=== PATIENT | male | born 1965 | race Caucasian/White ===

== ENCOUNTER 2024-06-26 19:33 | Inpatient (IN) | payer OTHER ==
[~2024-06-26] VITALS: Ht 172.7 cm; Wt 65.3 kg
[2024-06-26 20:29] LABS: BASOPHILS % 0.3 % (0.0-2.0); EOSINOPHILS % 1.4 % (0.0-5.0); HEMATOCRIT. 46.5 % (42.0-52.0); HEMOGLOBIN. 15.2 g/dL (14.0-18.0); LYMPHOCYTES % 16.5 % (20.0-50.0); MEAN CORPUSCULAR HEMOGLOBIN 29.4 pg (28.0-32.0); MEAN CORPUSCULAR HGB CONC 32.6 g/dL (31.0-37.0); MEAN CORPUSCULAR VOLUME 90.2 fL (80.0-94.0); MEAN PLATELET VOLUME 10.3 fl (7.4-10.4); MONOCYTES % 5.9 % (2.0-8.0); NEUTROPHILS % 75.9 % (40.0-76.0); PLATELET 118 x1000/uL (130-400); RED BLOOD CELL COUNT 5.15 mill/uL (4.7-6.1); RED CELL DISTRIBUTION WIDTH 14.4 % (11.6-14.6); WHITE BLOOD COUNT 7.3 x1000/uL (4.5-11.0)
[2024-06-26 20:39] LABS: CHLORIDE 105 mEq/L (98-107); POTASSIUM 4.2 mEq/L (3.5-5.1); SODIUM 140 mEq/L (136-145)
[2024-06-26 20:40] LABS: CARBON DIOXIDE 27 mEq/L (21-32)
[2024-06-26 20:41] LABS: CALCIUM 9.3 mg/dL (8.7-10.4)
[2024-06-26 20:45] LABS: CREATININE 1.2 mg/dL (0.6-1.3)
[2024-06-26 20:46] LABS: GLUCOSE 115 mg/dL (70-105); UREA NITROGEN BLOOD 20 mg/dL (9-23)
[2024-06-26 20:47] LABS: TROPONIN I HIGH SENSITIVITY 6 ng/L (3.0-53)
[2024-06-26 22:23] LABS: TROPONIN I HIGH SENSITIVITY 15 ng/L (3.0-53)
[2024-06-27] VITALS (7 sets, daily range): BP systolic 99–108; BP diastolic 61–66; PULSE 47–60; RESP 16–19; TEMP 36.2–36.7; O2SAT 96–100
[2024-06-27] MEDS ORDERED: SACU1TAB PO (00:08)
[2024-06-27] MEDS ORDERED: CLOP75TA33 PO (00:08)
[2024-06-27] MEDS ORDERED: ATOR40TA70 PO (00:08)
[2024-06-27] MEDS ORDERED: EMPA10TA PO (00:08)
[2024-06-27] MEDS ORDERED: SERT25TA74 PO (00:08)
[2024-06-27] MEDS ORDERED: ISOS30TA91 PO (00:08)
[2024-06-27] MEDS ORDERED: ZOLPIDEM TARTRATE 5MG TABLET PO PRN (00:15)
[2024-06-27] MEDS ORDERED: CLONIDINE 0.1MG TABLET PO PRN (00:15)
[2024-06-27] MEDS ORDERED: HYDROCODONE/ACETAMINOPHEN 5/325MG TABLET PO PRN (00:15)
[2024-06-27] MEDS ORDERED: MORPHINE SULFATE 2 MG/ML INJ (NOT FOR IM USE) IV PRN (00:15)
[2024-06-27] MEDS ORDERED: ONDANSETRON HCL 4MG/2ML INJ IV PRN (00:15)
[2024-06-27] MEDS ORDERED: ACETAMINOPHEN 325MG TABLET PO PRN (00:15)
[2024-06-27 08:42] LABS: TROPONIN I HIGH SENSITIVITY 15 ng/L (3.0-53)
[2024-06-27] MEDS: ENOXAPARIN 40MG/0.4ML SYR SUBCUT SCH (08:51)
[2024-06-27] MEDS: PANTOPRAZOLE SODIUM 40 MG/VIAL IV SCH (08:51)
[2024-06-27 10:43] LABS: CLARITY URINE CLEAR (CLEAR); COLOR URINE YELLOW (YELLOW); GLUCOSE URINE 3+ (NEGATIVE); KETONES URINE 1+ (NEGATIVE); LEUKOCYTE ESTERASE URINE NEGATIVE (NEGATIVE); NITRITE URINE NEGATIVE (NEGATIVE); OCCULT BLOOD URINE NEGATIVE (NEGATIVE); PROTEIN URINE NEGATIVE (NEGATIVE); SPECIFIC GRAVITY URINE 1.025 (1.005-1.030); UROBILINOGEN URINE 0.2 E.U./dL (0.2-1.0)
[2024-06-27 11:10] LABS: BACTERIA URINE NONE SEEN; RBC URINE 0-2 /hpf (0-2); SQUAMOUS EPITHELIAL CELL URINE RARE /lpf (RARE/1+); WBC URINE 0-2 /hpf (0-2); YEAST URINE NONE SEEN
[2024-06-27 11:15] LABS: *AMPHETAMINES SCREEN URINE NEGATIVE (NEGATIVE); *BARBITURATES SCREEN URINE NEGATIVE (NEGATIVE); *BENZODIAZEPINES SCREEN URINE NEGATIVE (NEGATIVE); *COCAINE SCREEN URINE NEGATIVE (NEGATIVE); CANNABINOID URINE SCREEN NEGATIVE (NEGATIVE); ECSTASY MDMA SCREEN URINE NEGATIVE (NEGATIVE); METHADONE URINE SCREEN NEGATIVE (NEGATIVE); OPIATES URINE SCREEN NEGATIVE (NEGATIVE); PHENCYCLIDINE URINE SCREEN NEGATIVE (NEGATIVE)
[2024-06-27] MEDS: SACUBITRIL/VALSARTAN 24MG/26MG TABLET PO SCH (12:30)
[2024-06-27] MEDS ORDERED: SERTRALINE HCL 25MG TABLET PO SCH (15:12)
[2024-06-27] MEDS ORDERED: NALOXONE HCL 0.4MG/ML VIAL IV PRN (16:00)
[2024-06-27 16:17] LABS: TROPONIN I HIGH SENSITIVITY 9 ng/L (3.0-53)
[2024-06-27] MEDS: ALPRAZOLAM 0.25 MG TABLET PO PRN (17:56)
[2024-06-27] MEDS: ATORVASTATIN CALCIUM 10MG TABLET PO SCH (20:44)
[2024-06-27] MEDS: SERTRALINE HCL 25MG TABLET PO SCH (20:45)
[2024-06-28] VITALS: BP 100/61; PULSE 47; RESP 19; TEMP 36.6; O2SAT 99
[2024-06-28 04:00] VITALS: BP 102/63; PULSE 48; RESP 17; TEMP 36.5; O2SAT 99
[2024-06-28 07:45] LABS: BASOPHILS % 0.5 % (0.0-2.0); EOSINOPHILS % 2.1 % (0.0-5.0); HEMATOCRIT. 43.3 % (42.0-52.0); HEMOGLOBIN. 14.6 g/dL (14.0-18.0); LYMPHOCYTES % 22.7 % (20.0-50.0); MEAN CORPUSCULAR HGB CONC 33.8 g/dL (31.0-37.0); MEAN PLATELET VOLUME 10.9 fl (7.4-10.4); MONOCYTES % 8.6 % (2.0-8.0); NEUTROPHILS % 66.1 % (40.0-76.0); PLATELET 113 x1000/uL (130-400); RED BLOOD CELL COUNT 4.86 mill/uL (4.7-6.1); RED CELL DISTRIBUTION WIDTH 13.9 % (11.6-14.6); WHITE BLOOD COUNT 6.3 x1000/uL (4.5-11.0)
[2024-06-28 08:00] VITALS: BP 110/65; PULSE 45; RESP 16; TEMP 36.3; O2SAT 100
[2024-06-28 08:01] LABS: CHLORIDE 104 mEq/L (98-107); SODIUM 138 mEq/L (136-145)
[2024-06-28 08:02] LABS: CARBON DIOXIDE 25 mEq/L (21-32)
[2024-06-28 08:03] LABS: CALCIUM 9.4 mg/dL (8.7-10.4)
[2024-06-28 08:07] LABS: CREATININE 1.1 mg/dL (0.6-1.3); GLUCOSE 78 mg/dL (70-105); UREA NITROGEN BLOOD 15 mg/dL (9-23)
[2024-06-28] MEDS: EMPAGLIFLOZIN 10MG TABLET PO SCH (09:00)
[2024-06-28] MEDS: CLOPIDOGREL 75MG TABLET PO SCH (09:10)
[2024-06-28 12:00] VITALS: BP 113/70; PULSE 57; RESP 17; TEMP 36.4; O2SAT 100
[2024-06-28] MEDS: NITROGLYCERIN SPRAY/4.9GM CAN TL ONE (12:45)
[2024-06-28] MEDS ORDERED: IOHEXOL-350 100 ML BOTTLE ONE (13:22)
[2024-06-28 17:38] VITALS: BP 103/63; PULSE 59; TEMP 97.7; O2SAT 100
== END 2024-06-28 18:30 | disposition home or self-care (01) | DRG 311 ==
LOC: ER 19:33 → EDBEDREQTM 22:00 → EDBEDREQ 22:00 → 6WST 23:38
PROVIDERS: ADMIT Internal Medicine; ATTEND Internal Medicine
DX: I24.9 Acute ischemic heart disease, unspecified (principal); I25.10 Atherosclerotic heart disease of native coronary artery without angina pectoris; I10 Essential (primary) hypertension; E78.5 Hyperlipidemia, unspecified; F41.9 Anxiety disorder, unspecified; R07.89 Other chest pain; Z95.1 Presence of aortocoronary bypass graft; I25.2 Old myocardial infarction; Z79.02 Long term (current) use of antithrombotics/antiplatelets; Z79.82 Long term (current) use of aspirin; Z79.84 Long term (current) use of oral hypoglycemic drugs; Z79.899 Other long term (current) drug therapy; Z82.49 Family history of ischemic heart disease and other diseases of the circulatory system; Z90.49 Acquired absence of other specified parts of digestive tract
CPT/HCPCS: 36415; 71045; 75571; 80048; 80305; 81003; 83880; 84484; 85025; 85379; 93306; 93970; 99285; A4606; J1650; J2470; Q9967

== ENCOUNTER 2024-07-18 22:12 | Inpatient (IN) | payer OTHER ==
[~2024-07-18] VITALS: Ht 167.6 cm; Wt 71.7 kg
[~2024-07-18 22:12] MED LIST: ATOR40TA70 PO; CLOP75TA33 PO; EMPA10TA PO; ISOS30TA91 PO; SACU1TAB PO; SERT25TA74 PO
[2024-07-18 23:16] LABS: BASOPHILS % 0.5 % (0.0-2.0); EOSINOPHILS % 1.6 % (0.0-5.0); HEMATOCRIT. 43.6 % (42.0-52.0); HEMOGLOBIN. 14.4 g/dL (14.0-18.0); LYMPHOCYTES % 15.1 % (20.0-50.0); MEAN CORPUSCULAR HEMOGLOBIN 29.7 pg (28.0-32.0); MEAN PLATELET VOLUME 10.6 fl (7.4-10.4); MONOCYTES % 7.7 % (2.0-8.0); NEUTROPHILS % 75.1 % (40.0-76.0); PLATELET 131 x1000/uL (130-400); RED BLOOD CELL COUNT 4.85 mill/uL (4.7-6.1); WHITE BLOOD COUNT 6.4 x1000/uL (4.5-11.0)
[2024-07-18 23:24] LABS: CHLORIDE 106 mEq/L (98-107); POTASSIUM 3.8 mEq/L (3.5-5.1); SODIUM 140 mEq/L (136-145)
[2024-07-18 23:24] LABS: *AMPHETAMINES SCREEN URINE NEGATIVE (NEGATIVE); *BARBITURATES SCREEN URINE NEGATIVE (NEGATIVE); *BENZODIAZEPINES SCREEN URINE NEGATIVE (NEGATIVE); *COCAINE SCREEN URINE NEGATIVE (NEGATIVE); CANNABINOID URINE SCREEN NEGATIVE (NEGATIVE); ECSTASY MDMA SCREEN URINE NEGATIVE (NEGATIVE); METHADONE URINE SCREEN NEGATIVE (NEGATIVE); OPIATES URINE SCREEN NEGATIVE (NEGATIVE); PHENCYCLIDINE URINE SCREEN NEGATIVE (NEGATIVE)
[2024-07-18 23:25] LABS: CALCIUM 9.4 mg/dL (8.7-10.4); CARBON DIOXIDE 25 mEq/L (21-32)
[2024-07-18 23:30] LABS: CREATININE 1.4 mg/dL (0.6-1.3); GLUCOSE 121 mg/dL (70-105); UREA NITROGEN BLOOD 19 mg/dL (9-23)
[2024-07-18 23:31] LABS: ETHANOL BLOOD < 10 mg/dL (<10); TROPONIN I HIGH SENSITIVITY 4 ng/L (3.0-53)
[2024-07-19] MEDS: ACETAMINOPHEN 325MG TABLET PO SCH (00:56)
[2024-07-19] MEDS: ASPIRIN 81MG TABLET PO ONE (01:51)
[2024-07-19 02:05] LABS: TROPONIN I HIGH SENSITIVITY 4 ng/L (3.0-53)
[2024-07-19] MEDS ORDERED: ONDANSETRON HCL 4MG/2ML INJ IV PRN (04:00)
[2024-07-19] MEDS ORDERED: ACETAMINOPHEN 325MG TABLET PO PRN ×2 (04:00)
[2024-07-19] MEDS ORDERED: IPRATROPIUM/ALBUTEROL 0.5-3(2.5)MG/3ML NEB HHN PRN (04:00)
[2024-07-19] MEDS: SODIUM CHLORIDE 0.9% 1,000 ML IV SCH (05:58)
[2024-07-19 06:31] VITALS: BP 114/87; PULSE 50; RESP 18; TEMP 36.3
[2024-07-19 08:00] VITALS: BP 108/68; PULSE 51; RESP 18; TEMP 36.7; O2SAT 96
[2024-07-19] MEDS: PANTOPRAZOLE SODIUM 40 MG/VIAL IV SCH (08:43)
[2024-07-19] MEDS ORDERED: LORAZEPAM 0.5MG TABLET PO PRN (08:45)
[2024-07-19] MEDS ORDERED: HYDRALAZINE 20MG/ML VIAL IV PRN (09:00)
[2024-07-19] MEDS: SERTRALINE HCL 25MG TABLET PO SCH (09:52)
[2024-07-19] MEDS: ENOXAPARIN 40MG/0.4ML SYR SUBCUT SCH (09:54)
[2024-07-19 12:00] VITALS: BP 118/66; PULSE 70; RESP 16; TEMP 36.3; O2SAT 100
[2024-07-19 12:38] LABS: BASOPHILS % 0.5 % (0.0-2.0); HEMATOCRIT. 43.6 % (42.0-52.0); HEMOGLOBIN. 14.5 g/dL (14.0-18.0); LYMPHOCYTES % 16.3 % (20.0-50.0); MEAN CORPUSCULAR HEMOGLOBIN 29.8 pg (28.0-32.0); MEAN CORPUSCULAR HGB CONC 33.3 g/dL (31.0-37.0); MEAN CORPUSCULAR VOLUME 89.6 fL (80.0-94.0); NEUTROPHILS % 76.2 % (40.0-76.0); PLATELET 124 x1000/uL (130-400); RED BLOOD CELL COUNT 4.87 mill/uL (4.7-6.1); RED CELL DISTRIBUTION WIDTH 13.9 % (11.6-14.6); WHITE BLOOD COUNT 5.1 x1000/uL (4.5-11.0)
[2024-07-19 12:46] LABS: CHLORIDE 106 mEq/L (98-107); POTASSIUM 4.1 mEq/L (3.5-5.1); SODIUM 140 mEq/L (136-145)
[2024-07-19 12:47] LABS: CARBON DIOXIDE 25 mEq/L (21-32)
[2024-07-19 12:52] LABS: CREATININE 1.1 mg/dL (0.6-1.3); GLUCOSE 89 mg/dL (70-105); TRIGLYCERIDE 64 mg/dL (0-150); TROPONIN I HIGH SENSITIVITY 4 ng/L (3.0-53); UREA NITROGEN BLOOD 17 mg/dL (9-23)
[2024-07-19 12:53] LABS: LDL CHOLESTEROL 48 mg/dL (5-100)
[2024-07-19 12:54] LABS: ALBUMIN 4.4 g/dL (3.2-4.8); CHOLESTEROL 109 mg/dL (<200); CREATINE KINASE 105 IU/L (46-171); HDL CHOLESTEROL 44 mg/dL (>55); PHOSPHORUS 3.3 mg/dL (2.5-4.9)
[2024-07-19 12:56] LABS: T4 FREE 1.15 ng/dL (0.89-1.76); THYROID STIMULATING HORMONE 2.45 uIU/mL (0.55-4.78)
[2024-07-19 16:00] VITALS: BP 138/69; PULSE 47; RESP 17; TEMP 36.3; O2SAT 100
[2024-07-19 16:32] LABS: TROPONIN I HIGH SENSITIVITY 4 ng/L (3.0-53)
[2024-07-19 20:00] VITALS: BP 113/75; PULSE 44; RESP 18; TEMP 36.6; O2SAT 100
[2024-07-19] MEDS: ATORVASTATIN CALCIUM 40MG TABLET PO SCH (22:00)
[2024-07-19 23:30] LABS: SODIUM URINE RANDOM 67 mEq/L
[2024-07-19 23:36] LABS: *AMPHETAMINES SCREEN URINE NEGATIVE (NEGATIVE); *BARBITURATES SCREEN URINE NEGATIVE (NEGATIVE); *BENZODIAZEPINES SCREEN URINE NEGATIVE (NEGATIVE)
[2024-07-19 23:37] LABS: *COCAINE SCREEN URINE NEGATIVE (NEGATIVE); CANNABINOID URINE SCREEN NEGATIVE (NEGATIVE); ECSTASY MDMA SCREEN URINE NEGATIVE (NEGATIVE); METHADONE URINE SCREEN NEGATIVE (NEGATIVE); OPIATES URINE SCREEN NEGATIVE (NEGATIVE); PHENCYCLIDINE URINE SCREEN NEGATIVE (NEGATIVE)
[2024-07-20] VITALS: BP 115/80; PULSE 45; RESP 18; TEMP 36.4; O2SAT 99
[2024-07-20 04:00] VITALS: BP 118/86; PULSE 44; RESP 18; TEMP 36.4; O2SAT 100
[2024-07-20 06:42] LABS: BASOPHILS % 0.4 % (0.0-2.0); EOSINOPHILS % 1.9 % (0.0-5.0); HEMATOCRIT. 39.6 % (42.0-52.0); LYMPHOCYTES % 21.4 % (20.0-50.0); MEAN CORPUSCULAR HEMOGLOBIN 29.9 pg (28.0-32.0); MEAN CORPUSCULAR VOLUME 90.7 fL (80.0-94.0); MONOCYTES % 8.7 % (2.0-8.0); NEUTROPHILS % 67.6 % (40.0-76.0); PLATELET 113 x1000/uL (130-400); RED BLOOD CELL COUNT 4.37 mill/uL (4.7-6.1); RED CELL DISTRIBUTION WIDTH 13.8 % (11.6-14.6)
[2024-07-20 06:45] LABS: CALCIUM 8.9 mg/dL (8.7-10.4); CARBON DIOXIDE 26 mEq/L (21-32); CHLORIDE 107 mEq/L (98-107); POTASSIUM 4.1 mEq/L (3.5-5.1); SODIUM 141 mEq/L (136-145)
[2024-07-20 06:49] LABS: UREA NITROGEN BLOOD 15 mg/dL (9-23)
[2024-07-20 06:50] LABS: CREATININE 1.2 mg/dL (0.6-1.3); GLUCOSE 85 mg/dL (70-105)
[2024-07-20 06:51] LABS: ALANINE AMINOTRANSFERASE 23 IU/L (10-49)
[2024-07-20 06:52] LABS: ASPARTATE AMINOTRANSFERASE 21 IU/L (<34)
[2024-07-20 06:53] LABS: BILIRUBIN DIRECT 0.3 mg/dL (<=3.0); BILIRUBIN TOTAL 0.8 mg/dL (0.1-1.0); PHOSPHORUS 3.1 mg/dL (2.5-4.9); PROTEIN TOTAL 5.8 g/dL (6.0-8.3)
[2024-07-20 08:00] VITALS: BP 98/62; PULSE 50; RESP 18; TEMP 36.3; O2SAT 98
[2024-07-20] MEDS: ASPIRIN 81MG TABLET PO SCH (08:46)
[2024-07-20] MEDS: CLOPIDOGREL 75MG TABLET PO SCH (08:47)
[2024-07-20] MEDS ORDERED: PROT20 MT (11:55)
[2024-07-20 12:00] VITALS: BP 103/71; PULSE 49; RESP 17; TEMP 36.6; O2SAT 98
[2024-07-20 13:02] LABS: CLARITY URINE CLEAR (CLEAR); COLOR URINE YELLOW (YELLOW); GLUCOSE URINE 3+ (NEGATIVE); KETONES URINE NEGATIVE (NEGATIVE); LEUKOCYTE ESTERASE URINE NEGATIVE (NEGATIVE); NITRITE URINE NEGATIVE (NEGATIVE); OCCULT BLOOD URINE NEGATIVE (NEGATIVE); PH URINE 5.5 (4.5-8.0); PROTEIN URINE NEGATIVE (NEGATIVE); SPECIFIC GRAVITY URINE 1.012 (1.005-1.030); UROBILINOGEN URINE 0.2 E.U./dL (0.2-1.0)
[2024-07-20 13:20] VITALS: BP 105/68; PULSE 82; TEMP 97.9; O2SAT 98
[2024-07-20 13:46] LABS: BACTERIA URINE RARE; RBC URINE NONE SEEN /hpf (0-2); SQUAMOUS EPITHELIAL CELL URINE RARE /lpf (RARE/1+); WBC URINE 0-2 /hpf (0-2); YEAST URINE NONE SEEN
== END 2024-07-20 14:20 | disposition home or self-care (01) | DRG 391 ==
LOC: ER 22:12 → 7WST 07-19 01:47 → ENRESERV 07-19 02:50 → 7WST 07-19 05:55
PROVIDERS: ADMIT Hospitalist; ATTEND Hospitalist
DX: K21.9 Gastro-esophageal reflux disease without esophagitis (principal); N17.0 Acute kidney failure with tubular necrosis; I24.9 Acute ischemic heart disease, unspecified; E78.5 Hyperlipidemia, unspecified; I11.9 Hypertensive heart disease without heart failure; F41.9 Anxiety disorder, unspecified; I25.10 Atherosclerotic heart disease of native coronary artery without angina pectoris; I25.2 Old myocardial infarction; I44.0 Atrioventricular block, first degree; R00.1 Bradycardia, unspecified; Z95.1 Presence of aortocoronary bypass graft; Z79.02 Long term (current) use of antithrombotics/antiplatelets; Z79.84 Long term (current) use of oral hypoglycemic drugs; Z79.899 Other long term (current) drug therapy; Z90.49 Acquired absence of other specified parts of digestive tract; Z95.5 Presence of coronary angioplasty implant and graft
CPT/HCPCS: 36415; 71045; 80048; 80061; 80076; 80305; 80320; 81003; 82040; 82550; 82962; 83036; 83735; 83880; 84100; 84300; 84439; 84443; 84484; 85025; 93005; 99285; A4606; J1650; J2470; G0480